=== PATIENT | male | born 1965 | race Caucasian/White ===

== ENCOUNTER 2017-05-23 11:32 | Emergency (ER) | payer BC, OTHER ==
[~2017-05-23 11:32] MED LIST: ASPI81 PO; OMEP20CA5 PO
[2017-05-23 11:38] VITALS: BP 133/69; PULSE 96; RESP 20; TEMP 98.7
[2017-05-23] MEDS ORDERED: ASPI-516 CHEW (11:53)
[2017-05-23] MEDS ORDERED: OMEP10CA PO (11:53)
[2017-05-23] MEDS ORDERED: MULTTAB67 PO (11:53)
[2017-05-23] MEDS ORDERED: BENZONATATE 100 MG CAP PO ONE (12:00)
--- NOTE | 2017-05-23 12:04 | PD ---
HPI Chief Complaint: ENT Complaint Time Seen by Provider: 11:53 Travel History International Travel<30 days: No Contact w/Intl Traveler<30days: No Traveled to known affect area: No History of Present Illness HPI Patient comes in complaining of cough, congestion, sore throat, generalized body aches, ear pain, and posttussive nausea but denies any vomiting. Patient reports symptoms been ongoing for 4 days. Patient tried using [id number] cold and Flu medication with minimal relief of symptoms. Coughing is worse at night when he tries to lie down. Patient reports his is sick as well but not as bad was diagnosed with a sinus infection. Denies any radiation of pain. Denies any chest pain, shortness of breath, abdominal pain, change in bowel or bladder, or fevers. PFSH Past Medical History Asthma: Yes Autoimmune Disease: No Blood Disorders: No Cancer: No High Cholesterol: Yes Genitourinary: No Musculoskeletal: No Neurologic: No Psychiatric: No Sleep Apnea: Yes Past Surgical History Abdominal Surgery: Yes Appendectomy: Yes Cardiac Surgery: No Ear Surgery: No Endocrine Surgery: No Eye Surgery: No Genitourinary Surgery: No Gynecologic Surgery: No Oral Surgery: No Thoracic Surgery: No Other Surgery: Yes (APPENDECTOMY) Social History Alcohol Use: No Tobacco Use: Yes Substance Use: No Allergies-Medications (Allergen,Severity, Reaction): Coded Allergies: No Known Allergies (Verified Adverse Reaction, Unknown, 05/23/17) Reported Meds & Prescriptions Reported Meds & Active Scripts Active Ventolin Hfa 18 GM Inh (Albuterol Sulfate) 90 Mcg/Act Aer 2 Puff INH Q4H PRN Medrol Dosepak (Methylprednisolone) 4 Mg Dspk 4 Mg PO DIRECTED Per Pharmacist direction Tespam Perles (Benzonatate) 100 Mg Cap 200 Mg PO Q8HR PRN Reported Aspirin 81 Mg Chew 81 Mg CHEW DAILY Multiple Vitamin 1 Tab 1 Tab PO DAILY Omeprazole 10 Mg Cap Unknown Dose PO DAILY Review of Systems Except as stated in HPI: all other systems reviewed are Neg Physical Exam Narrative GENERAL: Well-developed, overly nourished, in no acute distress, and non-ill appearing. SKIN: Focused skin assessment warm and dry. HEAD: Atraumatic. Normocephalic. EYES: Pupils equal and round. EOMI. No scleral icterus. No injection or drainage. ENT: No nasal bleeding or discharge. Mucous membranes pink and moist. Tympanic membranes pearly crockett bilaterally. Posterior pharynx moderately erythematous without exudate. Uvula is midline. No tenderness to facial sinuses to palpation. NECK: Trachea midline. No cervical lymphadenopathy. Supple. No nuclear rigidity. CARDIOVASCULAR: Regular rate and rhythm. No murmur appreciated. RESPIRATORY: No accessory muscle use. No respiratory distress. Clear to auscultation. Breath sounds equal bilaterally. Dry cough noted on exam. Patient speaking in full sentences without difficulty. MUSCULOSKELETAL: No obvious deformities. No clubbing. No cyanosis. No edema. Full range of motion. NEUROLOGICAL: Awake and alert. No obvious cranial nerve deficits. Motor grossly within normal limits. Normal speech. PSYCHIATRIC: Appropriate mood and affect; insight and judgment normal. Data Data Last Documented VS Vital Signs Date Time Temp Pulse Resp B/P (MAP) Pulse Ox O2 Delivery O2 Flow Rate FiO2 05/23/17 11:38 98.7 96 20 133/69 (90) Orders Orders Group A Rapid Strep Screen (05/23/17 11:58) Influenzae A/B Antigen (05/23/17 11:58) Chest, Single Ap (05/23/17 ) Benzonatate (Tessalon) (05/23/17 12:00) Strep Culture (Group A) (05/23/17 12:05) Ed Discharge Order (05/23/17 12:57) MDM Medical Decision Making Medical Screen Exam Complete: Yes Emergency Medical Condition: Yes Interpretation(s) Last Impressions Chest X-Ray 05/23/17 0000 Signed Impressions: Service Date/Time: Tuesday, May 23, 2017 12:12 - CONCLUSION: 1. No active disease. Brendan Shine MD Differential Diagnosis Influenza, strep pharyngitis, viral pharyngitis, URI, viral syndrome, pneumonia , bronchitis Narrative Course Patients symptom complex of cough and congestion is consistent with viral URI. The patient is non-ill appearing and is in no respiratory distress and comfortable. The patient moves air well and oxygen saturations are normal. There is no clinical evidence to suggest pneumonia at this time. Plan of care and management were discussed with the patient who agreed with plan. The patient was instructed to follow up with their physician and instructed to return if worsens, progressively worsening shortness of breath or difficulty breathing, persistent fever, chest pains or discomfort, inability to keep medication or fluids down with or without vomiting, or as needed. Patient in no obvious distress upon re-evaluation. All pertinent laboratory/ Radiology result(s) discussed with patient. Patient was asked if they wanted to speak to my attending, which the patient did not wish to do at this time. Any questions/concerns in reference to patient diagnosis/condition discussed and clarified prior to patient's discharge. Reinforced sheer importance of close follow up with patient's primary physician or primary care clinic. Instructed patient to return to ED immediately, if symptoms return/worsen. Patient showed understanding of above instructions. Further instructions and recommendations were detailed in discharge paperwork. Patient ambulated without difficulty out of ED at discharge. Diagnosis Primary Impression: Upper respiratory infection Qualified Codes: J06.9 - Acute upper respiratory infection, unspecified Referrals: [facility] Patient Instructions: General Instructions, Upper Respiratory Infection (ED) Additional Instructions: Follow-up with your primary care physician in 3-5 days for reevaluation. Take all medication as prescribed. Drink plenty of non-caffeinated and nonalcoholic fluids. Return to the emergency department if symptoms get worse. Med/Other Pt SpecificInfo: Prescription(s) given Scripts Albuterol 18 GM Inh (Ventolin Hfa 18 GM Inh) 90 Mcg/Act Aer 2 PUFF INH Q4H Y for COUGH, #1 INHALER 0 Refills Prov: Vitor Abel MD 05/23/17 Methylprednisolone Dosepak (Medrol Dosepak) 4 Mg Dspk 4 MG PO DIRECTED, #1 DSPK 0 Refills Per Pharmacist direction Prov: Vitor Abel MD 05/23/17 Benzonatate (Tessalon Perles) 100 Mg Cap 200 MG PO Q8HR Y for COUGH, #30 CAP 0 Refills Prov: Vitor Abel MD 05/23/17 Disposition: 01 DISCHARGE HOME Condition: Stable Mike Monzon May 23, 2017 12:04
--- NOTE | 2017-05-23 12:40 | RADRPT ---
EXAM DATE/TIME: 05/23/2017 12:12 [facility] COMPARISON: No previous studies available for comparison. INDICATIONS : Cough, sore throat. MEDICAL HISTORY : None. SURGICAL HISTORY : None. ENCOUNTER: Initial ACUITY: 2 days PAIN SCORE: 0/10 LOCATION: Bilateral chest FINDINGS: A single view of the chest demonstrates the lungs to be symmetrically aerated without evidence of mas s, infiltrate or effusion. The cardiomediastinal contours are unremarkable. Osseous structures are intact. CONCLUSION: 1. No active disease. Brendan Shine MD on May 23, 2017 at 12:38 Board Certified Radiologist. This report was verified electronically.
[2017-05-23] MEDS ORDERED: BENZ100 PO (12:55)
[2017-05-23] MEDS ORDERED: MEDR4PAK PO (12:55)
[2017-05-23] MEDS ORDERED: VENTAER INH (12:55)
== END 2017-05-23 13:16 | disposition home or self-care (01) ==
LOC: PHEFT 11:32
DX: J06.9 Acute upper respiratory infection, unspecified (principal); Z72.0 Tobacco use
CPT/HCPCS: 71045; 87081; 87804; 87880; 99284